=== PATIENT | male | born 1940 | race Caucasian/White ===

== ENCOUNTER 2020-08-27 21:30 | Inpatient (IN) | payer OTHER ==
[~2020-08-27] VITALS: Ht 165.1 cm; Wt 90.7 kg
--- NOTE | ~2020-08-27 | EMS ---
[facility] [address] [place] [address] EMS Patient Care Report Name: DAVID NAVARRO Room #: REG NISHA Navas#: [id number] Admission: 08/27/20 Attend Phys: Discharge: Date of : 44 Report #: [id number] THIS REPORT FOR: //name// Report Transmitted: 08/27/2020 21:17 EMS Care Summary [facility] Incident [id number] @ 08/27/2020 21:03 Incident Location [id number] [place] [address] Patient DAVID NAVARRO Male, 80 Years 1940 Patient Address [address] [place] [address] Patient History Hypertension (HTN), Chief Complaint stroke symptoms Disposition Transported No Lights/[place] Dispatch Reason Stroke/CVA Transported To [facility] Narrative Arrived on scene of a house to find pt slumped over in a recliner in the care of FD. Pt is groaning and not moving. Family states pt at 2100 finished dinner and went to use the restroom and was walking and talking and doing fine. ON the way out pt looked dazed and could not talk nor would he follow any commands. Family sat pt in the recliner and called 911. FD states pt would not follow commands for stroke scale but was moving all his parts and could not/would not speak. On EMS commands pt did stand and sit on the cot but would not speak. Outside in the ambulance pt started to ask "what is going on?" I tried a stroke [facility] [address] [place] [address] EMS Patient Care Report Name: DAVID NAVARRO Room #: REG [facility]#: [id number] Admission: 08/27/20 Attend Phys: Discharge: Date of : 44 Report #: [id number] scale again but pt would not do it. He did not sound slurred but he would not do the test because it was "dumb" He is moving all his parts. Pt is very confused to time, date, event, and location. On arrival to the ED pt is a bit more cooperative and pliable. In the ambulance pt was pulling off his mask and EKG wires. EMS was never able to get a good look at the EKG being only a mile from the ED. pt was taken to CT scan with report and care given over to RN and staff. Unable to get pt's full medical HX on scene. Initial Vitals @PTAP: 120,R: 12,BP: 142/80,Pain: 0/10,GCS: 8,SpO2: 96,Revised Trauma: 10, @21:18P: 160,R: 14,BP: 132/75,Pain: 0/10,GCS: 9,Temp: 97.4F,Glucose: 191,SpO2: 96,Revised Trauma: 11, @21:25P: 128,R: 16,BP: 127/78,Pain: 0/10,GCS: 13,SpO2: 97,Revised Trauma: 12, Assessments @21:19MENTAL:Combative,Confused,SKIN:HEENT:Head/Face: No Abnormalities,Neck/Airway: No Abnormalities,LUNG SOUNDS:General: No Abnormalities,Left Upper: No Abnormalities,Right Upper: No Abnormalities,Left Lower: No Abnormalities,Right Lower: No Abnormalities,ABDOMEN:General: No Abnormalities,Left Upper: No Abnormalities,Right Upper: No Abnormalities,Left Lower: No Abnormalities,Right Lower: No Abnormalities,PELVIS//GI:No Abnormalities,EXTREMITIES:Left Arm: Weakness,Right Arm: Weakness,Left Leg: Weakness,Right Leg: Weakness,PULSE:Radial: 2+ Normal,NEURO:Slurred Speech, Impression Transient Cerebral Ischemic Attack (TIA) Procedures @21:26Saline Lock 10cc (20 ga) Site: Hand-RightResponse: UnchangedSucceeded@21:18ALS AssessmentResponse: UnchangedSucceeded@21:21Surgical Mask on PatientResponse: Unchanged 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 [address] [place] [address] EMS Patient Care Report Name: DAVID NAVARRO Room #: REG NISHA Navas#: [id number] Admission: 08/27/20 Attend Phys: Discharge: Date of : 44 Report #: [id number] 13, 21:26,Saline Lock 10cc 20 ga Site: Hand-Right,Response: UnchangedSucceeded, 21:28,At Destination 22:00,Call Closed Disclaimer v1.1 Copyright 2020 [email or web address] This EMS Care Summary contains data elements from the applicable legal record (which may be displayed differently). It is designed to provide pertinent information for the following purposes: continuity of care, clinical quality, and state data reporting. The complete legal record is available to ED staff and administrators of the receiving hospital in [employer] Patient Tracker. All data is provided "as is."
[2020-08-27 21:31] VITALS: BP 122/49
[2020-08-27] MEDS ORDERED: LIPITOR 40 MG T40 M1 PO (22:25)
[2020-08-27] MEDS ORDERED: LEVOTHYROXINE75 MC1 PO (22:25)
[2020-08-27] MEDS ORDERED: MAGNESIUM250 M1 PO (22:26)
[2020-08-27] MEDS ORDERED: KLOR-CON 10 ER10 MEQ PO (22:26)
[2020-08-27 22:37] LABS: ABSOLUTE NEUTROPHILS 3.2 thou/uL (1.4-8.2); BASOPHILS 0.2 % (0.0-2.0); EOSINOPHILS 0.1 % (0.0-3.0); HEMATOCRIT 21.8 % (42.0-52.0); HEMOGLOBIN 7.5 gm/dL (14.0-18.0); MCH 31.5 pg (26.0-34.0); MCHC 34.4 g/dL (28.0-37.0); MCV 91.4 fL (80.0-100.0); MONOCYTES 4.7 % (1.0-8.0); PLATELET COUNT 25 thou/uL (150-400); RBC 2.39 mil/uL (4.50-6.00); RDW 12.6 % (10.5-14.5)
[2020-08-27 22:38] LABS: ANION GAP 18 mmol/L (7-16); BUN 22 mg/dL (7-18); CALCIUM 8.3 mg/dL (8.5-10.1); CHLORIDE 100 mmol/L (98-107); CO2 20 mmol/L (21-32); CREATININE 1.7 mg/dL (0.7-1.3); GLUCOSE 185 mg/dL (74-106); POTASSIUM 4.3 mmol/L (3.5-5.1); SODIUM 138 mmol/L (136-145)
[2020-08-27 22:49] LABS: SGOT 18 U/L (15-37); SGPT 29 U/L (30-65); TOTAL BILIRUBIN 0.8 mg/dL (0.2-1.0); TOTAL PROTEIN 6.3 g/dL (6.4-8.2); TROPONIN-I <0.06 ng/mL (<0.06)
[2020-08-27 22:51] LABS: APTT 21.1 Seconds (24.5-32.8); INR 1.13; PROTIME 12.2 Seconds (10.5-12.1)
--- NOTE | 2020-08-27 23:33 | NUR ---
SEE PAPER CHARTING FOR STROKE CHARTING
[2020-08-28] VITALS (12 sets, daily range): BP systolic 103–126; BP diastolic 41–102
--- NOTE | 2020-08-28 02:28 | NUR ---
PT ADMITTED FROM ER AT 00:45. ALERT AND ORIENTED X4. VSS AFEBRILE PERLLA. ALVARES'S BUT IS WEAK AND REQUIRES 1 PERSON ASSIST TO BSC AND WALKER. EPLAINED FALL PRECAUTIONS. BED ALARMIS ON . CALL LIGHT IN REACH. NIH WNL PRESENTLY. NO S/S TIAS SO FAR.VOIDS PER URINAL. HAD 1 LG SEMI-FORMED BM. IV FLUIDS STARTED ORDERED. NO C/O PAIN EXCEPT SORE THROAT. SR ON THE MONITOR. WILL CONTINUE TO MONITOR FOR CHANGES.
--- NOTE | 2020-08-28 04:59 | NUR ---
PT RESTING QUIETLY. NO S/S TIAS. VSS. NIH 0.
[2020-08-28 05:34] LABS: MCH 31.9 pg (26.0-34.0); MCHC 36.2 g/dL (28.0-37.0); MCV 88.2 fL (80.0-100.0); RBC 1.98 mil/uL (4.50-6.00); RDW 12.7 % (10.5-14.5); WBC 3.5 thou/uL (4.0-11.0)
[2020-08-28 05:43] LABS: HEMOGLOBIN 6.3 gm/dL (14.0-18.0)
[2020-08-28 05:44] LABS: HEMATOCRIT 17.5 % (42.0-52.0)
[2020-08-28 06:11] LABS: CALCIUM 7.8 mg/dL (8.5-10.1); CREATININE 1.1 mg/dL (0.7-1.3); POTASSIUM 4.1 mmol/L (3.5-5.1)
--- NOTE | 2020-08-28 06:47 | NUR ---
CRITICAL HG AND PLT CALLED TO DATA TYPIST Jony BARNARD. T&S ORDERED. 1 PACK OF PLT ORDERED AND 1 UNIT PRBCS ORDERED TO BE TRANSFUSED. NS IS TO DRAW PLT AND HG 1 HR AFTER TRANSFUSION. SPOKE WITH PT AND HIS REGARDING NEED FOR TRANSFUSION. PT VERBALIZED UNDERSTANDING OF POSSIBLE COMPLICATIONS OF TRANSFUSION REACTON. THEY BOTH HAVE AGREE TO TRANSFUSIONS. WILL NOTIFIY DAY SHIFT NS TO F/U WITH THE ABOVE.
--- NOTE | 2020-08-28 11:40 | EKG ---
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
--- NOTE | 2020-08-28 20:44 | NUR ---
PT WAS TRANSFERRED TO [facility] SINCE HE WAS BEING EVALUATED FOR CVA LAST NIGHT AND WAS CLEARED. HE HAD BEEN AT [facility] LAST WEEK UNDERGOING A WORKUP FOR POSSIBLE LEUKEMIA. HE CHOSE TO RETURN TO [facility] WHERE ALL OF HIS DOCTORS ARE TO CONTINUE HIS CARE. I TRANSFUSED PLATELETS X 2 AND STARTED A UNIT OF BLOOD @ 1645 AND HE LEFT AROUND 1720 VIA EMS FOR [facility]...
--- NOTE | 2020-08-28 20:50 | NUR ---
THE PATIENT HAD TO BE SENT WITH ONE OF OUR IV PUMPS I WAS INFUSING BLOOD. THE NUMBER ON PUMP IS [id number] AND WILL BE PLACED IN PATIENT ROOM N413. COULD A TRANSPORTATION SUPERINTENDENT BE SENT TO RETRIEVE PUMP?
[2020-08-29 01:06] LABS: GLYCOHEMOGLOBIN (HGB A1C) 7.2 % (4.8-5.6)
--- NOTE | 2020-09-01 14:16 | HC ---
[facility] [place] [address] CONSULTATION Name: DAVID NAVARRO Room #: 354-P [facility] IN M.R.#: [id number] Admission: 08/28/20 Attend Phys: Daniel Garcia MD Discharge: 08/28/20 Date of : 44 Report #: [id number] THIS REPORT FOR: cc: Haroon Good Timothy C. DO Khosla, Parveen K. MD ~ DOC #: [id number] Keenan Muir MD DATE OF SERVICE: 08/28/2020 HISTORY OF PRESENT ILLNESS: This is a 80-year-old male patient who was seen by me for an episode of aphasia and right hemiplegia. I talked to emergency room doctor who saw him yesterday and I talked to him twice. Today, I gave a call to Dr. Ching who is the hospitalist today for this patient. The patient basically had an episode of speech difficulty as well as aphasia. Symptoms resolved in a few minutes by themselves. There was no headache and she does not know what brought it on. This patient has been seen in [facility]. REASON FOR EVALUATION: He was having generalized fatigue. They found significant abnormality of his blood and he underwent a bone marrow evaluation. He used to be on baby aspirin for several years. It was just started because the patient says he does not have a stroke, that was discontinued about a week ago because of the patient's low platelet count. REVIEW OF SYSTEMS: A 14-point review of system was carried out. He has generalized fatigue. He denies any eye, ENT, cardiac, respiratory, GI, , musculoskeletal, constitutional, dermatological, psychiatric, throat, allergic symptom associated with present symptomatology. He has a pronounced hematological symptom associated with present symptomatology. PAST MEDICAL HISTORY: Positive for what looks like a pretty significant abnormality of his blood with a very low hemoglobin and very low platelet count. FAMILY HISTORY: Negative for stroke or seizure. SOCIAL HISTORY: He drinks very little alcohol. PHYSICAL EXAMINATION: VITAL SIGNS: Blood pressure is 107/47, respirations 17, pulse is 73, temperature is 97.7. NECK: No thyroid mass. No carotid bruit. CARDIAC: Unremarkable. LUNGS: No respiratory difficulty. NEUROLOGIC: The patient's examination indicate he is alert, responsive. [facility] [address] [place] [address] CONSULTATION Name: DAVID NAVARRO Room #: 354-P [facility] IN M.R.#: [id number] Admission: 08/28/20 Attend Phys: Daniel Garcia MD Discharge: 08/28/20 Date of : 44 Report #: [id number] speech looks intact. He believes his memory is at his baseline. Cranial nerve examination and neuromuscular examination is checked for strength, sensation, and reflexes that are symmetrical. There is no cerebellar sign. I could not look at the patient's fundus. LABORATORY DATA: His hemoglobin is only 6.3. I reviewed his CT and CT angiogram, which was basically unremarkable. 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 He has a platelet count of only 618. Therefore, he was not started on aspirin or Plavix. I called Dr. Ching and discussed with her that this patient needs a hematological evaluation. From neurological perspective, the only thing he needs is an MRI to complete the workup, but the family says that they would like to go to [facility] and get all his workup done there. They want to be transferred there. Dr. Ching is going to work on that. Thank you very much for this referral. Keenna Muir MD PK/MUK <ELECTRONICALLY SIGNED> By: Keenan Muir MD 09/01/20 1416 1040 1923 Keenan Muir MD /nt
== END 2020-08-28 17:25 | disposition short-term general hospital (02) | DRG 69 ==
LOC: ER 21:30 → 3W 08-28 00:01 → EROBS 08-28 00:01 → 3W 08-28 00:33
PROVIDERS: Emergency Medicine; Nurse Practitioner Family; ADMIT Internal Medicine; ATTEND Internal Medicine
PROC: 30233R1 Transfusion of Nonautologous Platelets into Peripheral Vein, Percutaneous Approach (ICD-10-PCS; principal; 2020-08-28)
PROC: 30233N1 Transfusion of Nonautologous Red Blood Cells into Peripheral Vein, Percutaneous Approach (ICD-10-PCS; principal; 2020-08-28)
DX: G45.9 Transient cerebral ischemic attack, unspecified (principal); R47.01 Aphasia; D61.818 Other pancytopenia; G81.91 Hemiplegia, unspecified affecting right dominant side; E78.5 Hyperlipidemia, unspecified; E03.9 Hypothyroidism, unspecified; Z79.899 Other long term (current) drug therapy
CPT/HCPCS: 10879